=== PATIENT | female | born 1990 | race Caucasian/White ===

== ENCOUNTER 2019-12-06 05:02 | Inpatient (IN) ==
[2019-12-06] MEDS ORDERED: BISACODYL 10 MG SUPP.RECT RC PRN (05:13)
[2019-12-06] MEDS ORDERED: RINGER'S SOLUTION,LACTATED 1,000 ML IV PRN (05:13)
[2019-12-06] MEDS ORDERED: OXYTOCIN 20 UNITS in RINGER'S SOLUTION,LACTATED 1,000 ML IV ONE ×4 (05:13)
[2019-12-06] MEDS ORDERED: SIMETHICONE 80 MG TAB.CHEW PO PRN (05:13)
[2019-12-06] MEDS ORDERED: SENNOSIDES 8.6 MG TABLET PO PRN (05:13)
[2019-12-06] MEDS ORDERED: RINGER'S SOLUTION,LACTATED 1,000 ML IV ONE (05:13)
[2019-12-06] MEDS ORDERED: ONDANSETRON HCL/PF 2 MG/ML VIAL IV PRN (05:13)
[2019-12-06] MEDS ORDERED: diphenhydrAMINE HCL 25 MG CAPSULE PO PRN (05:13)
[2019-12-06 05:44] LABS: Cocaine Ur Negative (NEGATIVE); Urine Barbiturate Negative (NEGATIVE); Urine Benzodiazepines Negative (NEGATIVE); Urine Opiates Negative (NEGATIVE); Urine PCP Negative (NEGATIVE); Urine THC Negative (NEGATIVE)
[2019-12-06] MEDS ORDERED: SUCCINYLCHOLINE CHLORIDE 20 MG/ML VIAL ONE (06:36)
[2019-12-06] MEDS ORDERED: BUPIVACAINE HCL/EPINEPHRINE 50 ML VIAL IJ ONE (06:36)
[2019-12-06] MEDS ORDERED: ceFAZolin SODIUM 1 GM VIAL ONE (07:07)
--- NOTE | 2019-12-06 07:14 | ANES ---
Anesthesia Pre Procedure Eval HOME MEDICATIONS Pnv95/Iron Fum/Folic Acid [Prenavite Tablet] 1 ea PO DAILY 12/06/19 [Last Taken Unknown] Allergies/Adverse Reactions: Allergies Allergy/AdvReac Type Severity Reaction Status Date / Time No Known Allergies Allergy Verified 11/29/19 13:42 - Planned Procedure Planned Procedure: Labor Medication List Reviewed:: Yes Allergies Verified: Yes Medical History (Last Reviewed 12/06/19 @ 07:11 by Steven Garcia CRNA) Anemia Onset Date: ~2006 Anxiety Onset Date: Unknown Chlamydia Onset Date: Unknown Depression Onset Date: Unknown dx age 13 Endometriosis Onset Date: ~08/17/14 Low back pain Onset Date: Unknown Miscarriage Onset Date: ~2004 Urinary tract infection Onset Date: Unknown Surgical History (Last Reviewed 12/06/19 @ 07:11 by Steven Garcia CRNA) H/O dilation and curettage Onset Date: ~2006 History of appendectomy Onset Date: ~2009 History of cholecystectomy Onset Date: ~2009 Previous section Onset Date: ~2012 Dr. Saldana- 2012 Family History (Last Reviewed 12/06/19 @ 07:12 by Steven Garcia CRNA) Father Drug abuse Hepatitis hepatitis C Seizures Grandfather Cancer skin Grandmother , maternal Aneurysm Mother Hepatitis hepatitis C Drug overdose - Family Anesthesia History Family History:: no untoward family reactions to anesthesia, no familial bleeding tendencies, no family history of clotting disorders, no family history of premature - Airway/Neck/Teeth Within Normal Limits:: Yes Teeth Condition: intact Neck Exam: full range of motion Mallampatti Score: 2 Thyromental (T-M) distance: > 6 cm Mandibulo Hyoid distance: > 3 cm - Respiratory Respiratory Physical: lungs clear Smoking Status: Never smoker Sleep Apnea currently treated: No Sleep Apnea by current assessment: No - Cardiovascular Tolerate Activity: Fair Heart Sounds: S1 & S2, Regular - Gastrointestinal NPO since: 2400 - Anesthesia Assessment and Plan ASA Class: PS, II Anesthesia Type Plan: Block - Bilateral TAP block for post op pain relief, Spinal - Hx two spinal anesthesias, post dura puncture headache after one. Discussed at length
--- NOTE | 2019-12-06 09:00 | ANES ---
Post Anesthesia Discharge - Transfer of Care Transfer of Care handoff given to nurse: Yes - Discharge from PACU Discharge from PACU when meets criteria: Yes - Alert and comfortable.
--- NOTE | 2019-12-06 09:04 | OR ---
Operative Report - Dictated Report Narrative: Date of delivery: 12/06/2019 Time of delivery: 753 Gender: female weight: 3405 grams APGARS: 04/12 Preoperative diagnosis: IUP at 39w 0d, history of delivery x2, history of UTI, history of THC use Postoperative diagnosis: same and in addition 2VC Procedure: Repeat delivery Surgeon: Dr. Bowers Anesthesia: spinal Anesthesiologist: Steven Garcia CRNA Description of the procedure: The patient was taken to the operating room where spinal anesthesia was induced. She was then prepped and draped in the supine position in the standard surgical fashion. Attention was then turned to the abdomen. A Pfannestiel skin incision was made. The incision was carried through the subcutaneous tissue. The fascia was incised in the midline. The fascia was extended laterally. The fascia was grasped with [place] and tented up. The fascia was from the underlying rectus muscles. An incisional hernia was noted of the omentum coming through the rectus muscles. The rectus muscles were in the midline. The peritoneum was entered in an avascular plane and as superior as possible with good visualization of the bowel and bladder. The peritoneum was entered bluntly. A large Ramiro retractor was placed in the abdomen. The lower uterine segment was incised in a low transverse fashion. The lower uterine segment was thin but there was no uterine window. Rupture of membranes occurred while making the uterine incision. The fluid was noted to be clear. The uterine incision was extended bluntly. The head was delivered without difficulty. The shoulders delivered without any difficulty followed by the rest of the . The cord was clamped and cut and the infant was handed off to the attending pediatric staff. Cord blood was collected. The placenta was delivered by expression and appeared intact. The uterus was cleared of all clots and debris. The uterine incision was closed with two layers of 0-vicryl. The second layer was an imbricating layer. Hemostasis was adequate. The subfascial tissues were inspected as were the rectus muscles and these were made hemostatic. The rectus muscles were reapproximated using two sutures of 2-0 vicryl. The Ramiro retractor was removed from the abdomen. The fascia was closed with a single layer of 1-0 vicryl. The subcutaneous tissue was irrigated and made hemostatic. The skin was closed with 3-0 monocryl on a Michael needle. Zapata castañeda was applied over the incision and a dressing was applied. All sponge, lap, and needle counts were correct. The patient tolerated the procedure well. She was transferred to the recovery room in stable condition. EBL: 400 mL Complications: none Specimens: cord segment History for MU Definition: * The number of deliveries resulting in a live the patient experienced prior to current hospitalization * The previous delivery of live twins or any live multiple gestation is considered one live event. *If primagravida or nulliparous is documented select zero for the number of previous live births. Live Events: 2
--- NOTE | 2019-12-06 09:10 | ANES ---
Anesthesia Procedure Note Procedure Note: ANESTHESIA PROCEDURE NOTE Date of Procedure: 12/06/2019 Time of procedure: 8:45 AM. Performed by: TIMOTHY Travis CRNA, MSN Wage Conciliator: Sarah Smith RN. Preprocedure diagnosis: Post section pain. Post procedure diagnosis: Same. Procedure: Bilateral TAP block Indications: Post section pain relief. Findings: See below. Details of the procedure: The patient was brought to PACU and placed in the supine position. The patient was prepped with chlorhexidine and using ultrasound guidance the 3 abdominal muscular planes were identified and lidocaine 1% was infiltrated to the skin of the intended injection site. Under ultrasound guidance the the internal oblique and transverse this abdominis muscle layers were approached with visualization of a 4 inch block needle until the tip of the needle rested in the plane between the muscles. 25 mL bupivacaine 0.25% with 1-200,000 epinephrine was injected and the procedure was repeated on the other side. Please see radiology/ultrasound report for details and images of the procedure. EBL: 0 Fluids: N/A. Specimen: N/A. Post procedure condition: The patient tolerated the procedure well. No complications were noted. Thank you for this consultation. Steven Garcia CRNA, ARNP, MSN
--- NOTE | 2019-12-06 09:11 | ANES ---
Post Anesthesia Assessment - Vital Signs Vitals: Last Vital Signs Temp 36.1 C 12/06/19 08:59 Pulse 82 12/06/19 08:55 Resp 18 12/06/19 08:59 BP 103/58 12/06/19 08:55 Pulse Ox 100 12/06/19 08:55 Airway Patency: Normal - Mental Status Level Of Consciousness: Awake, Alert, Appropriate - Pain Level Pain Score: 0 - N/V Assessment Nausea/Vomiting Presence: None Dehydration:: No
[2019-12-06] MEDS: HYDROcodone/ACETAMINOPHEN 1 EACH TABLET PO PRN ×5 (10:18→22:31)
[2019-12-06] MEDS: IBUPROFEN 800 MG TABLET PO PRN ×2 (10:18→16:18)
[2019-12-06] MEDS: DOCUSATE SODIUM 100 MG CAPSULE PO SCH ×2 (10:19→21:15)
[2019-12-06] MEDS: KETOROLAC TROMETHAMINE 30 MG/ML VIAL IV PRN (21:15)
[2019-12-07] MEDS: HYDROcodone/ACETAMINOPHEN 1 EACH TABLET PO PRN ×2 (02:58→07:16)
[2019-12-07] MEDS: KETOROLAC TROMETHAMINE 30 MG/ML VIAL IV PRN (03:04)
[2019-12-07] MEDS ORDERED: ceFAZolin SODIUM 1 GM VIAL IV PRN (06:00)
[2019-12-07] MEDS: DOCUSATE SODIUM 100 MG CAPSULE PO SCH ×3 (07:17→21:32)
--- NOTE | 2019-12-07 08:55 | PN ---
Subjective - Date and Time Seen Date: 12/07/19 Time: 08:53 Subjective Narrative: Patient without complaints Objective Objective Narrative: See vital signs - Review of Systems Generalized/Overall Review: Reports: No Symptoms Reported Misc: All systems neg except as marked - Vitals Vitals: Last Vital Signs Temp 37.0 C 12/07/19 06:47 Pulse 75 12/07/19 06:47 Resp 18 12/07/19 06:47 BP 103/66 12/07/19 06:47 Pulse Ox 99 12/07/19 06:47 - Exam Constitutional: Present: Alert, Oriented x3, Cooperative, No distress ENT Exam: Present: hearing grossly normal Abdomen: Present: soft, nontender, nondistended - dressing c/d/i /Rectal: Present: Exam deferred Extremity: Present: non-tender, no calf tenderness Skin Exam: Present: normal color, warm/dry, no cyanosis Appearance: Present: appropriate appearance, appropriate insight Eye contact: Present: cooperative, good eye contact, normal speech Thoughts: Present: normal thought pattern Cauti Physician Documentation - Urinary Catheter Management Urethral (Bacon) Urethral Indwelling: No Date of Insertion: 12/06/19 Time of Insertion: 07:40 Date of Removal: 12/06/19 Time of Removal: 19:36 Assessment/Plan Plan Narrative: POD 1 s/p repeat delivery Pain not optimally controlled. Switch to percocet Otherwise doing well Discharge POD 3
[2019-12-07] MEDS ORDERED: oxyCODONE HCL/ACETAMINOPHEN 1 TAB TABLET PO PRN (08:58)
[2019-12-07] MEDS: oxyCODONE HCL/ACETAMINOPHEN 1 TAB TABLET PO PRN ×5 (09:38→22:03)
[2019-12-07] MEDS: IBUPROFEN 800 MG TABLET PO PRN ×2 (09:39→16:57)
[2019-12-08] MEDS: IBUPROFEN 800 MG TABLET PO PRN ×2 (01:09→11:06)
[2019-12-08] MEDS: oxyCODONE HCL/ACETAMINOPHEN 1 TAB TABLET PO PRN ×2 (08:03→11:05)
[2019-12-08] MEDS: DOCUSATE SODIUM 100 MG CAPSULE PO SCH (08:03)
[2019-12-08 08:24] VITALS: BP 118/74
--- NOTE | 2019-12-08 09:01 | PN ---
Subjective - Date and Time Seen Date: 12/08/19 Time: 09:00 Subjective Narrative: Patient without complaints Objective Objective Narrative: See vital signs - Review of Systems Generalized/Overall Review: Reports: No Symptoms Reported Misc: All systems neg except as marked - Vitals Vitals: Last Vital Signs Temp 37.2 C 12/08/19 08:19 Pulse 83 12/08/19 08:19 Resp 18 12/08/19 08:19 BP 118/74 12/08/19 08:19 Pulse Ox 100 12/08/19 08:19 - Exam Constitutional: Present: Alert, Oriented x3, Cooperative, No distress Abdomen: Present: soft, nontender, nondistended - incision c/d/i Extremity: Present: non-tender, no calf tenderness Skin Exam: Present: normal color, warm/dry, no cyanosis Appearance: Present: appropriate appearance, appropriate insight Eye contact: Present: cooperative, good eye contact, normal speech Thoughts: Present: normal thought pattern Cauti Physician Documentation - Urinary Catheter Management Urethral (Bacon) Urethral Indwelling: No Date of Insertion: 12/06/19 Time of Insertion: 07:40 Date of Removal: 12/06/19 Time of Removal: 19:36 Assessment/Plan Plan Narrative: POD 2 s/p repeat delivery Doing well Discharge home Follow-up in 6 weeks or sooner for any other concerns
== END 2019-12-08 13:25 | disposition home or self-care (01) | DRG 788 ==
LOC: OB 05:02
PROVIDERS: ADMIT Obstetrics & Gynecology; ATTEND Obstetrics & Gynecology
CPT/HCPCS: 59025; 80307; 86850